=== PATIENT | female | born 1980 | race Native Hawaiian/Other Pacific Islander ===

== ENCOUNTER 2017-11-01 15:15 | Emergency (ER) | payer OTHER ==
[~2017-11-01] VITALS: Ht 170.2 cm; Wt 104.3 kg
[2017-11-01 15:43] VITALS: TEMP 98
[2017-11-01 16:44] LABS: PLATELET COUNT 302 K/uL (152-353)
[2017-11-01 16:53] LABS: POTASSIUM 3.9 mmol/L (3.6-5.2)
[2017-11-01 18:10] VITALS: BP 145/96
== END 2017-11-01 18:20 | disposition home or self-care (01) ==
LOC: ED 15:15
PROVIDERS: Family Medicine
DX: R42 Dizziness and giddiness (principal); T78.49XA Other allergy, initial encounter; X58.XXXA Exposure to other specified factors, initial encounter; I10 Essential (primary) hypertension
CPT/HCPCS: 36415; 80053; 85027; 99283

== ENCOUNTER 2018-02-22 11:33 | Emergency (ER) | payer OTHER ==
[~2018-02-22] VITALS: Ht 170.2 cm; Wt 104.3 kg
[2018-02-22 13:10] VITALS: BP 126/85; TEMP 86.1
== END 2018-02-22 13:15 | disposition home or self-care (01) ==
LOC: ED 11:33
DX: S60.052A Contusion of left little finger without damage to nail, initial encounter (principal); Y04.0XXA Assault by unarmed brawl or fight, initial encounter
CPT/HCPCS: 99282

== ENCOUNTER 2018-05-28 09:18 | Outpatient (CLI) | payer OTHER | END 2018-05-28 22:45 | disposition home or self-care (01) | LOC: RAD 09:18 | DX: J44.9 Chronic obstructive pulmonary disease, unspecified (principal); M13.88 Other specified arthritis, other site; I10 Essential (primary) hypertension; F32.89 Other specified depressive episodes; C76.41 Malignant neoplasm of right upper limb ==

== ENCOUNTER 2018-06-19 14:49 | Emergency (ER) | payer OTHER ==
[~2018-06-19] VITALS: Ht 170.2 cm; Wt 104.3 kg
[2018-06-19 15:00] VITALS: TEMP 98.8
[2018-06-19 16:05] VITALS: BP 121/76
== END 2018-06-19 16:05 | disposition home or self-care (01) ==
LOC: ED 14:49
PROC: 0Y953ZZ Drainage of Right Inguinal Region, Percutaneous Approach (ICD-10-PCS; principal; 2018-06-19)
DX: L02.214 Cutaneous abscess of groin (principal)
CPT/HCPCS: 87070; 87205; 96372; 99283; J1885

== ENCOUNTER 2018-09-04 12:48 | Outpatient (CLI) | payer OTHER | END 2018-09-04 23:41 | disposition home or self-care (01) | LOC: RAD 12:48 | DX: M79.645 Pain in left finger(s) (principal) ==

== ENCOUNTER 2018-12-04 10:22 | Observation (INO) | payer OTHER ==
[~2018-12-04] VITALS: Ht 177.8 cm; Wt 105.3 kg
[2018-12-04 10:27] VITALS: BP 153/77; TEMP 99.5
[2018-12-04 11:07] LABS: PLATELET COUNT 318 K/uL (152-353)
[2018-12-04 11:12] LABS: POTASSIUM 4.1 mmol/L (3.6-5.2)
[2018-12-04 12:27] VITALS: BP 149/68
[2018-12-04 13:27] VITALS: BP 148/62; TEMP 99.2
[2018-12-04 13:56] VITALS: BP 120/72; TEMP 100.5; Ht 177.8 cm; Wt 105.3 kg
[2018-12-04] MEDS ORDERED: LISI10TA11 PO (14:09)
[2018-12-04] MEDS ORDERED: IBU800 MG PO (14:10)
[2018-12-04] MEDS ORDERED: GRALISE600 MG PO (14:13)
[2018-12-04] MEDS ORDERED: LIPITOR40 MG PO (14:14)
[2018-12-04 16:00] VITALS: BP 120/72; TEMP 100.5
[2018-12-04 19:50] VITALS: BP 119/81; TEMP 99.5
[2018-12-05] VITALS: BP 132/68; TEMP 98.5
[2018-12-05 04:00] VITALS: BP 116/55; TEMP 98.2
[2018-12-05 05:37] LABS: PLATELET COUNT 244 K/uL (152-353)
[2018-12-05 05:54] LABS: POTASSIUM 3.6 mmol/L (3.6-5.2)
[2018-12-05 08:04] VITALS: BP 116/66; TEMP 97.8
[2018-12-05 12:00] VITALS: BP 162/94; TEMP 98.7
[2018-12-05 16:04] VITALS: BP 118/58; TEMP 98.6
[2018-12-05 20:00] VITALS: BP 121/58; TEMP 99.4
== END 2018-12-05 20:15 | disposition left against medical advice (07) ==
LOC: ED 10:22 → MED/SURG 12:30
PROVIDERS: Internal Medicine; ADMIT Emergency Medicine
DX: B33.8 Other specified viral diseases (principal); M79.7 Fibromyalgia; I10 Essential (primary) hypertension
CPT/HCPCS: 36415; 80048; 80053; 81000; 83605; 85027; 87040; 87502; 87651; 94640; 94664; 94760; 96365; 96366; 96372; 96374; 96375; 99220; 99283; G0378; J0456; J0696; J1885; J2930

== ENCOUNTER 2019-06-21 09:06 | Emergency (ER) | payer OTHER ==
[~2019-06-21] VITALS: Ht 177.8 cm; Wt 105.2 kg
[~2019-06-21 09:06] MED LIST: GRALISE600 MG PO; IBU800 MG PO; LIPITOR40 MG PO; LISI10TA11 PO
[2019-06-21 10:34] VITALS: BP 146/87; TEMP 98.1
== END 2019-06-21 10:35 | disposition home or self-care (01) ==
LOC: ED 09:06
DX: S93.492A Sprain of other ligament of left ankle, initial encounter (principal); S91.201A Unspecified open wound of right great toe with damage to nail, initial encounter; W22.8XXA Striking against or struck by other objects, initial encounter; Y92.89 Other specified places as the place of occurrence of the external cause
CPT/HCPCS: 99283

== ENCOUNTER 2019-12-31 16:44 | Emergency (ER) | payer OTHER ==
[~2019-12-31] VITALS: Ht 170.2 cm; Wt 98.4 kg
[2019-12-31 16:56] VITALS: TEMP 98.7
[2019-12-31 18:13] LABS: POTASSIUM 4.4 mmol/L (3.6-5.2); SODIUM 135 mmol/L (136-145)
[2019-12-31 18:18] LABS: PLATELET COUNT 277 K/uL (152-353)
[2019-12-31 19:00] VITALS: BP 121/92
== END 2019-12-31 19:01 | disposition home or self-care (01) ==
LOC: ED 16:44
PROVIDERS: Family Medicine
DX: K21.9 Gastro-esophageal reflux disease without esophagitis (principal); M94.0 Chondrocostal junction syndrome [Tietze]
CPT/HCPCS: 36415; 80053; 82550; 82553; 83690; 84484; 85027; 93005; 96374; 99284; J1885

== ENCOUNTER 2020-03-19 15:23 | Emergency (ER) | payer OTHER ==
[~2020-03-19] VITALS: Ht 172.7 cm; Wt 102.1 kg
[2020-03-19 19:42] VITALS: BP 129/87; TEMP 98.1
== END 2020-03-19 19:45 | disposition home or self-care (01) ==
LOC: ED 15:23
DX: S39.012A Strain of muscle, fascia and tendon of lower back, initial encounter (principal); M62.830 Muscle spasm of back; X50.9XXA Other and unspecified overexertion or strenuous movements or postures, initial encounter; Y92.89 Other specified places as the place of occurrence of the external cause
CPT/HCPCS: 81000; 99283

== ENCOUNTER 2020-12-16 08:53 | Emergency (ER) | payer OTHER ==
[~2020-12-16] VITALS: Ht 170.2 cm; Wt 102.1 kg
[2020-12-16 09:01] VITALS: BP 138/79; TEMP 98.5
== END 2020-12-16 10:06 | disposition home or self-care (01) ==
LOC: ED 08:53
DX: J06.9 Acute upper respiratory infection, unspecified (principal); F17.210 Nicotine dependence, cigarettes, uncomplicated; B96.89 Other specified bacterial agents as the cause of diseases classified elsewhere; Z20.822 Contact with and (suspected) exposure to COVID-19
CPT/HCPCS: 87502; 87635; 96372; 99283; J0696; J1100; U0003

== ENCOUNTER 2021-10-01 17:19 | Emergency (ER) | payer OTHER ==
[~2021-10-01] VITALS: Ht 170.2 cm; Wt 102.1 kg
[2021-10-01 17:28] VITALS: TEMP 98.4
[2021-10-01 18:21] LABS: PLATELET COUNT 283 K/uL (152-353)
[2021-10-01 18:28] LABS: POTASSIUM 4.3 mmol/L (3.6-5.2)
[2021-10-01 19:12] VITALS: BP 120/81
== END 2021-10-01 19:12 | disposition home or self-care (01) ==
LOC: ED 17:19
PROVIDERS: Emergency Medicine
DX: R42 Dizziness and giddiness (principal); R11.0 Nausea
CPT/HCPCS: 80048; 81002; 81025; 85027; 96372; 99283; J2405

== ENCOUNTER 2022-04-17 10:42 | Outpatient (CLI) | payer OTHER | END 2022-04-17 20:47 | disposition home or self-care (01) | LOC: RAD 10:42 | PROVIDERS: ATTEND Registered Nurse | DX: M25.562 Pain in left knee (principal) ==

== ENCOUNTER 2022-04-27 10:33 | Emergency (ER) | payer OTHER ==
[~2022-04-27] VITALS: Ht 170.2 cm; Wt 87.1 kg
[2022-04-27 10:44] VITALS: BP 138/83; TEMP 98.2
== END 2022-04-27 12:45 | disposition home or self-care (01) ==
LOC: ED 10:33
DX: S40.011A Contusion of right shoulder, initial encounter (principal); W10.2XXA Fall (on)(from) incline, initial encounter; Y92.098 Other place in other non-institutional residence as the place of occurrence of the external cause
CPT/HCPCS: 96372; 99283; J1885; J2270; J2405

== ENCOUNTER 2022-08-02 01:54 | Emergency (ER) | payer OTHER ==
[~2022-08-02] VITALS: Ht 170.2 cm; Wt 90.7 kg
[2022-08-02 02:34] LABS: PLATELET COUNT 345 K/uL (152-353)
[2022-08-02 03:28] VITALS: BP 132/91; TEMP 97.1
== END 2022-08-02 03:30 | disposition home or self-care (01) ==
LOC: ED 01:54
PROVIDERS: Radiology Diagnostic Radiology
DX: R10.9 Unspecified abdominal pain (principal); F17.210 Nicotine dependence, cigarettes, uncomplicated
CPT/HCPCS: 36415; 80053; 81000; 83690; 85027; 96372; 96374; 96375; 99284; J0696; J1170; J1885; J2405

== ENCOUNTER 2022-09-21 08:37 | Emergency (ER) | payer OTHER ==
[~2022-09-21] VITALS: Ht 170.2 cm; Wt 83.5 kg
[2022-09-21 08:52] VITALS: TEMP 98.3
[2022-09-21 09:42] VITALS: BP 112/62
== END 2022-09-21 09:45 | disposition home or self-care (01) ==
LOC: ED 08:37
DX: M62.838 Other muscle spasm (principal); M54.2 Cervicalgia; G89.29 Other chronic pain; M54.9 Dorsalgia, unspecified; F32.A Depression, unspecified
CPT/HCPCS: 96374; 96375; 99284; J1885; J2930

== ENCOUNTER 2022-10-07 19:47 | Emergency (ER) | payer OTHER ==
[~2022-10-07] VITALS: Ht 170.2 cm; Wt 83.5 kg
[2022-10-07 19:55] VITALS: BP 129/76; TEMP 98.1
== END 2022-10-07 21:20 | disposition home or self-care (01) ==
LOC: ED 19:47
DX: U07.1 COVID-19 (principal)
CPT/HCPCS: 87502; 87635; 99282; U0003